=== PATIENT | male | born 1970 | race Caucasian/White ===

== ENCOUNTER 2016-12-03 16:31 | Emergency (ER) | payer OTHER ==
--- NOTE | ~2016-12-03 | CR93 ---
[facility] A Service of [facility] & [facility] RADIOLOGY TEXT RESULTS PATIENT: JASON UNDERWOOD LOCATION: [facility] : [birth year] UNIT #: [id number] AGE: [address]: Jordi Mir MD SEX: M ORDER DR: [id number] [facility] [address] [place], [place] [address] [id number] E MR#: [id number] Acc #: [id number] NAME: JASON UNDERWOOD : 1970 SEX: M STUDY DATE/TIME: 12/03/2016 17:15 UNIT: [facility] ROOM: STUDY DESCRIPTION: CR Elbow Min 3 Views Lt Attending Physician: Jordi Mir M.D. Ordering Physician: Jordi Mir M.D. Primary Care Physician: Primary Care Physician No MEDICAL IMAGING REPORT This report is preliminary unless electronic signature is present EXAM Left elbow 3 views HISTORY Pain and swelling. Fell 2 days ago. FINDINGS 3 views are submitted. Bony elements are intact and in normal alignment. No fractures are seen. There is no evidence of joint effusion. CONCLUSION Negative. Dictated by... Anuel Barnhart M.D. THIS IS AN ELECTRONICALLY VERIFIED REPORT Anuel Barnhart M.D. at 12/07/2016 5:10 PM Billie TD: 12/04/2016 07:34 JOB #: [id number] MEDICAL IMAGING REPORT COPY
[~2016-12-03 16:31] MED LIST: AUGMENTIN PO; CELEXA20 MG PO; KEFLEX125 MG/5 M PO; LEVAQUIN750 MG PO; LOPRESSOR PO; NICOTINE TRANSD21 MG EXT; PERCOCET PO; PERCOCET7.5 PO; VIBRAMYCIN100 M1 PO; VICODIN 5/1 TAB 5/50 PO; ZESTRIL40 MG PO
[2016-12-03 16:53] LABS: BASOPHIL% 0.5 % (0-2.5); EOSINOPHIL# 0.1 X10e3 (0-0.7); EOSINOPHIL% 1.7 % (0.0-7.0); HEMATOCRIT 44.9 % (38.0-50.0); LYMPHOCYTE% 28.6 % (17.0-45.0); MEAN CELL VOLUME 96.9 FL (83-96); MEAN CORPUSCULAR HEMOGLOBIN 32.4 PG (28-34); MEAN CORPUSCULAR HGB CONC 33.4 g/dL (30-36); MEAN PLATELET VOLUME 8.9 FL (6.5-11.5); MONOCYTE# 0.5 X10e3 (0-1.0); MONOCYTE% 7.5 % (3.0-12.0); NEUTROPHIL# 4.2 X10e3 (1.5-7.1); NEUTROPHIL% 61.7 % (40-75); PLATELET COUNT 130 X10e3 (140-420); RED BLOOD COUNT 4.64 X10e (3.90-5.60); RED CELL DISTRIBUTION WIDTH 13.8 % (11.0-15.5); WHITE BLOOD COUNT 6.9 X10e3 (4.0-10.5)
[2016-12-03 16:58] LABS: DIFF IND NO
[2016-12-03 17:20] LABS: ALBUMIN SERUM 3.8 g/dL (3.5-5.0); ALKALINE PHOSPHATASE 59 U/L (32-92); ALT (SGPT) 38 U/L (10-40); AST (SGOT) 26 U/L (10-42); BILIRUBIN,TOTAL 0.6 mg/dL (0.2-2.0); BLOOD UREA NITROGEN 16 mg/dL (9-23); CALCIUM SERUM 9.4 mg/dL (8.4-10.2); CARBON DIOXIDE 26 mmol/L (22-31); CHLORIDE 105 mmol/L (100-111); CREATININE SERUM 0.8 mg/dL (0.6-1.4); GLOM FILT RATE Estimated ABOVE60 mL/min (>60); GLUCOSE FASTING 167 mg/dL (70-110); LIPASE 41 U/L (22-51); POTASSIUM 3.8 mmol/L (3.5-5.1); PROTEIN TOTAL SERUM 6.7 g/dL (6.0-8.3); SODIUM 141 mmol/L (135-145)
[2016-12-03 17:21] LABS: BILIRUBIN, DIRECT <0.1 mg/dL (0.0-0.2); BILIRUBIN,INDIRECT 0.5 mg/dL (0.0-0.9)
== END 2016-12-03 18:37 | disposition home or self-care (01) ==
LOC: CED 16:31
PROVIDERS: Emergency Medicine
DX: S50.02XA Contusion of left elbow, initial encounter (principal); R11.10 Vomiting, unspecified; R19.7 Diarrhea, unspecified; R10.9 Unspecified abdominal pain; F17.200 Nicotine dependence, unspecified, uncomplicated; I10 Essential (primary) hypertension; W19.XXXA Unspecified fall, initial encounter
CPT/HCPCS: 36415; 73080; 80048; 80076; 83690; 85025; 96374; 99284; J2405

== ENCOUNTER 2017-01-07 10:00 | Emergency (ER) | payer OTHER ==
--- NOTE | ~2017-01-07 | CR141 ---
[facility] A Service of [facility] & [facility] RADIOLOGY TEXT RESULTS PATIENT: JASON UNDERWOOD LOCATION: [facility] : 66 UNIT #: [id number] AGE: [address]: Donna Rebollar SEX: M ORDER DR: [id number] [facility] [address] [place], [place] [address] [id number] E MR#: [id number] Acc #: [id number] NAME: JASON UNDERWOOD : 1970 SEX: M STUDY DATE/TIME: 01/07/2017 09:10 UNIT: [facility] ROOM: STUDY DESCRIPTION: CR Hand Min 3 Views Lt Attending Physician: Donna Rebollar P.A.-C. Ordering Physician: Donna Rebollar P.A.-C. Primary Care Physician: Nikos Kimball Aprn MEDICAL IMAGING REPORT This report is preliminary unless electronic signature is present EXAM Left hand 3 views 01/07/2017 0910 hours CLINICAL HISTORY 47-year-old man with history of rheumatoid arthritis, complaining of 3-week history of hand pain. No known injury. COMPARISON None. FINDINGS AP, lateral and oblique views demonstrate overall normal bone density. The distal radius and ulna are normal. There is degenerative change at the first carpometacarpal joint with spurring and ossicles present. No definite erosive change. There is a small cyst in the distal aspect of the first metacarpal which is well corticated and benign in appearance. There is no acute fracture. There are radiopaque foreign bodies in the soft tissues of the thumb measuring 4 mm adjacent to the midportion of the first metacarpal and 2 mm adjacent to the distal aspect of the proximal phalanx of the thumb. These are seen on all 3 views and likely represent foreign bodies. There is an additional tiny metallic foreign body in the volar soft tissues of the distal forearm measuring 3 mm. IMPRESSION 1. No fracture or dislocation. 2. There is arthritic change at the first carpometacarpal joint with spurring, joint space loss, and ossicles. No definite erosive change. 3. Benign cyst in the distal first metacarpal. 4. There are small metallic radiopaque foreign bodies in the soft tissues of the thumb measuring 2 mm adjacent to the distal aspect of the proximal phalanx, 4 mm adjacent to the midportion of the first metacarpal with an additional 3 mm foreign body in the volar soft tissues of the forearm. [facility] A Service of [facility] & [facility] RADIOLOGY TEXT RESULTS PATIENT: JASON UNDERWOOD LOCATION: [facility] : 66 UNIT #: [id number] AGE: [address]: Donna Rebollar SEX: M ORDER DR: Dictated by... Rand Nicolas M.D. THIS IS AN ELECTRONICALLY VERIFIED REPORT Rand Nicolas M.D. at 01/07/2017 11:56 AM Brian TD: 01/07/2017 10:35 JOB #: [id number] MEDICAL IMAGING REPORT Page 1 of 1 COPY
== END 2017-01-07 10:14 | disposition home or self-care (01) ==
LOC: CED 10:00
DX: M06.842 Other specified rheumatoid arthritis, left hand (principal); I10 Essential (primary) hypertension; F41.9 Anxiety disorder, unspecified; F32.9 Major depressive disorder, single episode, unspecified; Z88.1 Allergy status to other antibiotic agents; Z87.891 Personal history of nicotine dependence
CPT/HCPCS: 29280; 73130; 99283